=== PATIENT | female | born 1955 | race Caucasian/White ===

== ENCOUNTER 2022-09-04 08:43 | Emergency (ER) | payer MEDICARE, MEDICAID ==
[~2022-09-04] VITALS: Ht 165.1 cm; Wt 49.1 kg
[2022-09-04 08:47] VITALS: BP 206/96
== END 2022-09-04 19:07 | disposition home or self-care (01) ==
LOC: ER 08:44
DX: M19.90 Unspecified osteoarthritis, unspecified site (principal); M25.551 Pain in right hip; F17.200 Nicotine dependence, unspecified, uncomplicated; J44.9 Chronic obstructive pulmonary disease, unspecified; F31.9 Bipolar disorder, unspecified
CPT/HCPCS: 73502; 99283

== ENCOUNTER 2022-09-09 07:26 | Emergency (ER) | payer MEDICARE, MEDICAID ==
[~2022-09-09] VITALS: Ht 165.1 cm; Wt 49.1 kg
[2022-09-09 09:53] VITALS: BP 194/90
[2022-09-09] MEDS ORDERED: acetaminophen 325mg tablet PO ONE (09:55)
[2022-09-09] MEDS ORDERED: LIDO700A32 TOP (09:58)
[2022-09-09] MEDS ORDERED: LIDOcaine 5% patch TP STA (09:58)
== END 2022-09-09 10:14 | disposition home or self-care (01) ==
LOC: ER 07:26
DX: M25.551 Pain in right hip (principal); M19.90 Unspecified osteoarthritis, unspecified site; I10 Essential (primary) hypertension; J44.9 Chronic obstructive pulmonary disease, unspecified
CPT/HCPCS: 99283

== ENCOUNTER 2024-07-10 12:39 | Day surgery (SDC) | payer MEDICARE, MEDICAID ==
[2024-07-08 14:07] LABS: BASOPHILS # (AUTO) 0.1 X10'3 (0-0.2); EOSINOPHILS # (AUTO) 0.1 X10'3 (0-0.9); EOSINOPHILS % (AUTO) 1.4 % (0-6); LYMPHOCYTES # (AUTO) 1.2 X10'3 (1.1-4.8); LYMPHOCYTES % (AUTO) 13.2 % (21-51); MEAN CORPUSCULAR HEMOGLOBIN 31.8 PG (27.0-31.0); MEAN CORPUSCULAR HGB CONC 33.9 g/dL (33.0-36.5); MEAN CORPUSCULAR VOLUME 93.8 FL (78-98); MEAN PLATELET VOLUME 6.8 FL (7.4-10.4); MONOCYTES # (AUTO) 0.7 X10'3 (0-0.9); MONOCYTES % (AUTO) 7.6 % (2-12); NEUTROPHILS # (AUTO) 6.7 X10'3 (1.8-7.7); NEUTROPHILS % (AUTO) 76.8 % (42-75); PRE OP HEMOGLOBIN 11.9 g/dL (12.0-16.0); PRE OP PLATELET COUNT 269 X10'3 (140-440); PRE OP WHITE BLOOD COUNT 8.7 10'3 (4.8-10.8); RED BLOOD COUNT 3.72 X10'6 (4.20-5.60); RED CELL DISTRIBUTION WIDTH 15.9 % (11.5-14.5)
[2024-07-08 14:24] LABS: ALBUMIN 3.8 G/DL (3.4-5.0); ALKALINE PHOSPHATASE 120 IU/L (46-116); BLOOD UREA NITROGEN 11 MG/DL (7-18); BUN/CREATININE RATIO 15.9 (10.0-20.0); CALCIUM 9.5 MG/DL (8.5-10.1); CHLORIDE 102 MMOL/L (99-107); CREATININE 0.69 MG/DL (0.40-0.90); PRE OP ALT 18 U/L (30-65); PRE OP ANION GAP 9 (8-16); PRE OP AST 13 U/L (10-37); PRE OP BILIRUB, TOTAL 0.7 MG/DL (0.0-1.0); PRE OP GLUCOSE 99 MG/DL (70-104); PRE OP POTASSIUM 3.6 MMOL/L (3.4-5.1); PRE OP SODIUM 139 MMOL/L (135-145); TOTAL CARBON DIOXIDE 27.7 MMOL/L (24-32); TOTAL PROTEIN 7.6 G/DL (6.4-8.2); eGFR 84 ML/MIN
[~2024-07-10] VITALS: Ht 165.1 cm; Wt 47.6 kg
[~2024-07-10 12:39] MED LIST: ACET-2119 PO; AMLO5TAB16 PO; BIOT5000 PO; BUPR-564 PO; CALC-1040; CYAN50009 PO; FERR325T7 PO; LOSA25TA41 PO; NICO-631 TOP; ONDA-104; OXYC10TA47; UMEC62.5 INH
[2024-07-10] MEDS: ringers solution, lacted 1,000 ML IV SCH (13:59)
[2024-07-10] MEDS: famotidine 20mg tablet PO ONE (13:59)
== END 2024-07-10 14:30 | disposition home or self-care (01) ==
LOC: PAS 12:39
PROVIDERS: ATTEND Internal Medicine Critical Care Medicine
DX: R22.2 Localized swelling, mass and lump, trunk (principal); Z53.8 Procedure and treatment not carried out for other reasons; J98.4 Other disorders of lung; J43.9 Emphysema, unspecified; Z98.890 Other specified postprocedural states; D64.9 Anemia, unspecified; Z93.3 Colostomy status; Z79.899 Other long term (current) drug therapy
CPT/HCPCS: 36415; 71250; 80053; 85025; 93005; J7120